=== PATIENT | female | born 1945 | race Caucasian/White ===

== ENCOUNTER 2020-08-21 03:42 | Observation (INO) | payer MEDICARE, SELFPAY ==
[2020-08-21] VITALS (12 sets, daily range): BP systolic 156–221; BP diastolic 49–74; PULSE 68–84; RESP 16–24; TEMP 36.3–37.1; O2SAT 94–100; BMI 27.0
--- NOTE | ~2020-08-21 | US_ITS ---
EXAMINATION: US venous doppler [facility] DATE: 08/21/2020 07:27 INDICATION: Lower limb pain TECHNIQUE: Grayscale ultrasound images without and with compression and Doppler ultrasound images of the left lower extremity veins were obtained. COMPARISON: None. FINDINGS: The visualized portions of left common femoral vein, profunda (deep) femoral vein, femoral vein, popl iteal vein, peroneal veins, posterior tibial veins, gastrocnemius vein and greater saphenous vein out flow are patent. IMPRESSION: 1. No deep venous thrombosis in the left lower limb. Reviewed, dictated and finalized at location A.
--- NOTE | 2020-08-21 03:53 | ECG_ITS ---
Measurements Intervals [place] Rate: 78 P: 35 NJ: 127 QRS: 55 QRSD: 93 T: 14 QT: 375 QTc: 429 Interpretive Statements SINUS RHYTHM BORDERLINE ST ABNORMALITY- ANTERLATERAL LEADS BASELINE ARTIFACT- I, II, III, AVR, V4 BORDERLINE ECG Electronically Signed On 08-21-2020 7:09:21 CDT by Fly Arreola D.O.
--- NOTE | 2020-08-21 04:35 | ED.RECABL ---
HPI - Recheck/Abnormal Lab/Rx General Chief Complaint: Recheck/Abnormal Lab/Rx Stated Complaint: high bp Time Seen by Provider: 08/21/20 03:45 Source: patient Mode of arrival: ambulatory Limitations: no limitations History of Present Illness HPI narrative: This is a 74 year old female with history of hypertension and hyperlipidemia who presents for evaluation of hypertension. She reports she has been having intermittent spikes in her blood pressure over the past 2 weeks. When her blood pressure is greater than systolic 160 she will take hydralazine 25 mg to 50 mg. Otherwise she takes nifedpine 60 mg daily for her blood pressure. Tonight she states she was in the hot tub for 40 minutes. After getting out of hot tub, she started feeling her heart pounding so she checked her blood pressure. Her BP was systolic 200s so she took hydralazine 50 mg at 930 pm last night. She checked her blood pressure again at 3 am this morning it was still elevated. She denies chest pain, abdominal pain, dizziness, headache, nausea, vomiting or sob. She has chronic leg edema but she states it is not worse than normal. She is from out of town so she wanted to come get checked. Related Data Home Medications Medication Instructions Recorded Confirmed atorvastatin 10 mg PO DAILY 08/21/20 furosemide 20 mg PO BID 08/21/20 hydralazine 50 mg PO TID 08/21/20 nifedipine 60 mg PO DAILY 08/21/20 Allergies Allergy/AdvReac Type Severity Reaction Status Date / Time Penicillins Allergy Unknown Verified 08/21/20 03:52 Review of Systems Review of Systems: All systems reviewed & are unremarkable except as noted in HPI and below Constitutional: Constitutional: Denies chills and Denies fever(s) Eyes: Eyes: Denies change in vision Cardiovascular: Cardiovascular: Denies chest pain, Reports rapid heart rate and Denies radiating jaw, neck or arm pain Respiratory: Respiratory: Denies cough and Denies dyspnea Gastrointestinal: Gastrointestinal: Denies abdominal pain, Denies diarrhea, Denies nausea and Denies vomiting Musculoskeletal: Musculoskeletal: Denies back pain Neurologic: Denies dizziness and Denies headache(s) Psychiatric: Psychiatric: Reports anxiety PMF Past Medical History Medical History (Updated 08/21/20 @ 07:34 by Malika Glass MD) Chronic renal disease Hyperlipidemia Hypertension Surgical History Surgical History (Updated 08/21/20 @ 04:45 by Malika Glass MD) No pertinent past surgical history Social History Social History (Updated 08/21/20 @ 04:45 by Malika Glass MD) Smoking status: Never smoker Exam Const: General: no acute distress and alert Orientation/consciousness: patient oriented x3 Eyes: Pupils: Equal, round and reactive pupils present EOM: EOMs intact bilaterally Chest: Chest palpation & inspection: normal inspection of the chest Resp: Effort & Inspection: normal respiratory effort and no retractions Auscultation: clear to auscultation bilaterally Cardio: Rate: regular rate Rhythm: regular rhythm Heart sounds: no murmurs GI: GI Palp: Yes Soft to palpation, No Tenderness to palpation present (GI) and No Guarding due to palpation present (GI) Auscultation: normal bowel sounds Back/Spine/Pelvis: Back: no CVA tenderness Skin: General skin exam: normal color Rashes: no rashes Neuro: General: patient oriented x3 and moves all extremities Extrem: General: edema bilateral (leg) Psych: Mental Status: mental status grossly normal Affect: Anxious affect present Course Reevaluation(s) Reevaluation #1: PAtient is anxious but she declines medication. She is now complaining of left thigh pain. leg with warm with no discoloration. Bilateral leg edema present. I am able to doppler and palpate DP, PT pulse. She will be admitted for treatment of hypertension and obtain of venous doppler. Date: 08/21/20 Time: 07:31 Consultations Consultation #1: I spoke with Dr. viera who
[2020-08-21] MEDS: hydrALAZINE HCL 50 MG TABLET PO (04:40)
[2020-08-21] MEDS: NIFEdipine 30 MG TAB.ER.24 60 MG PO (04:40)
[2020-08-21 04:48] LABS: Basophils Absolute Auto 0.1 K/mm3 (0.0-0.1); Eosinophils Absolute Auto 0.1 K/mm3 (0-0.3); Eosinophils Percent Auto 1.5 % (0-4.4); Hematocrit 37.3 % (37.0-47.0); Hemoglobin 11.7 g/dL (12.0-15.0); Immature Granulocyte Absolute 0.02 K/mm3 (0.00-0.031); Immature Granulocyte Percent A 0.3 % (0-0.5); Lymphocytes Absolute Auto 3.15 K/mm3 (0.9-3.2); Lymphocytes Percent Auto 39.7 % (18.3-44.2); Mean Corpuscular HGB Conc 31.4 g/dl (32-36); Mean Corpuscular Hemoglobin 27.5 pg (26-34); Mean Corpuscular Volume 87.8 fl (80-100); Mean Platelet Volume 11.9 fl (7.4-10.4); Monocytes Absolute Auto 0.7 K/mm3 (0.1-0.6); Monocytes Percent Auto 8.8 % (2.6-8.5); Neutrophils Absolute Auto 3.9 K/mm3 (1.3-6.7); Neutrophils Percent Auto 48.7 % (45.5-73.1); Platelet Count Result 221 k/mm3 (150-375); Red Blood Count 4.25 M/mm3 (4.2-5.4); Red Cell Distribution Width 16.2 % (11.5-14.5); White Blood Count 7.9 K/mm3 (4.5-10.0)
[2020-08-21 04:56] LABS: Alanine Aminotransferase 12 U/L (4-35); Albumin Level 4.1 g/dL (3.5-5.1); Alkaline Phosphatase 145 U/L (38-126); Anion Gap 6 mmol/L (8-16); Aspartate Amino Transferase 22 U/L (14-36); Bilirubin,Total 0.7 mg/dL (0.2-1.3); Blood Urea Nitrogen 38 mg/dL (7-17); Calcium 9.7 mg/dL (8.4-10.2); Carbon Dioxide 24 mmol/L (22-30); Chloride 112 mmol/L (98-107); Estimated CRCL calculation 28 ml/min; Estimated Glomerular Filt Rate 29; Glucose 116 mg/dL (65-105); Potassium 4.1 mmol/L (3.4-5.0); Sodium 142 mmol/L (137-145)
[2020-08-21 05:04] LABS: Prothrombin Time 13.4 Seconds (11.1-14.7)
[2020-08-21 05:04] LABS: Add Urine Microscopic? YES; Appearance Urine Clear (Clear); Bilirubin Urine Negative (Negative); Blood Urine Negative (Negative); Color Urine Colorless (Yellow); Glucose Urine UA Negative (Negative); Ketones Urine Negative (Negative); Leukocyte Esterase Ur Negative LEU/UL (Negative); Mucus Urine Rare /lpf; Nitrate Urine Negative (Negative); Protein Urine 2+ mg/dL (Negative); RBC Urine 0-2 /hpf (0-2); Specific Grav Ur 1.009 (1.001-1.035); Squamous Epithelial Cell Urine Rare /hpf (Few); Urobilinogen Urine Negative mg/dL (<2.0); WBC Urine 0-3 /hpf
[2020-08-21 05:05] LABS: Partial Thromboplastin Time 31.1 SECONDS (22.3-36.8)
[2020-08-21 05:07] LABS: Troponin I < 0.012 ng/mL (0.000-0.034)
[2020-08-21] MEDS: hydrALAZINE HCL 20 MG/ML VIAL 10 MG IV PUSH ×3 (05:45→14:07)
[2020-08-21] MEDS: MORPHINE SULFATE (*CRX) 4 MG/ML INJ IV PUSH (07:53)
[2020-08-21] MEDS: ASPIRIN 81 MG CHEWABLE TABLET 324 MG PO (07:56)
[2020-08-21] MEDS: ONDANSETRON INJ 4 MG/2 ML VIAL IV PUSH (08:07)
[2020-08-21 08:42] LABS: Glucose Point of Care 121 (65-105)
--- NOTE | 2020-08-21 09:26 | ADMGEN ---
This patient, Anali Santos, was admitted to Medical Room 247-. Patient/family oriented to hospital policies and general routines including ID bracelet, bed and alarms, visiting hours, pain management, procedures, bathroom and other care routines, personal items, smoking policy, room service/diet, and visiting hours. Information on how to activate the Rapid Response Team has been discussed. Patient/Family are encouraged to report perceived risks to care and to ask questions if they do not understand what they are told or what they should do.
[2020-08-21] MEDS: LIDOCAINE 5% PATCH 1 PATCH TRANSDERM (11:40)
[2020-08-21 15:11] LABS: Glucose Point of Care 123 (65-105)
[2020-08-21] MEDS: FUROSEMIDE 20 MG TABLET PO (16:45)
[2020-08-21] MEDS: hydrALAZINE HCL 25 MG TABLET PO (16:45)
--- NOTE | 2020-08-21 17:10 | PM.IMHP ---
H&P: HPI History of Present Illness Date/Time: 08/21/20 17:10 Chief Complaint: hIgh BP Narrative: Pt is from [place] came here for graduation. Noticed her BP was running high so came into hospital for evaluation. Pt was in hospital in February with [facility] in [place] but has been followed in the clinic for DM, HLD and HTN. States her diabetes is good but her HTN is variable. Noticed her BP was very high yesterday night and took her hydralazine. Also noticed her legs were swollen and complains of pain in her left groin area. No chest pain or sob Review of Systems Review of Systems: All systems reviewed & are unremarkable except as noted in HPI and below PMFSH Past Medical History Medical History (Updated 08/21/20 @ 17:16 by Kina Elaine MD) Chronic renal disease Hyperlipidemia Hypertension Surgical History Surgical History No pertinent past surgical history Family History Family History Father Heart failure Mother Dementia Social History Social History Smoking status: Never smoker Alcohol intake: never Substance use: never Spiritual care concerns: No Meds Home Medications and Allergies Home Medications Medication Instructions Recorded Confirmed Type amlodipine 10 mg PO DAILY 08/21/20 08/21/20 History atorvastatin 10 mg PO DAILY 08/21/20 08/21/20 History furosemide 20 mg PO BID 08/21/20 08/21/20 History hydralazine 50 mg PO DAILY PRN 08/21/20 08/21/20 History insulin glargine [Lantus Solostar 10 unit SUBCUT DAILY 08/21/20 08/21/20 History U-100 Insulin] insulin lispro [Humalog KwikPen 2 - 3 unit SUBCUT TID 08/21/20 08/21/20 History Insulin] nifedipine 60 mg PO DAILY 08/21/20 08/21/20 History Allergies Allergy/AdvReac Type Severity Reaction Status Date / Time Penicillins Allergy Intermediate Rash Verified 08/21/20 09:28 Vital Signs Vital Signs - 24 hr 08/21/20 03:48 08/21/20 05:32 08/21/20 06:40 Temperature Pulse Rate 82 68 75 Respiratory Rate 20 17 20 Blood Pressure 221/74 H 208/60 H 185/54 H Pulse Oximetry 100 100 100 08/21/20 08:15 08/21/20 08:36 08/21/20 09:05 Temperature 36.3 C L Pulse Rate 79 84 80 Respiratory Rate 18 24 H 18 Blood Pressure 177/55 H 161/51 H 179/50 H Pulse Oximetry 94 95 99 08/21/20 12:00 08/21/20 14:00 08/21/20 16:00 Temperature 36.5 C Pulse Rate 74 79 81 Respiratory Rate 16 Blood Pressure 184/72 H Pulse Oximetry 97 Exam Const: General: well developed Nutritional Appearance: well nourished HENMT: Head: normocephalic Eyes: General: appearance normal, both eyes and all related structures Pupils: Equal, round and reactive pupils present Neck: Neck: supple Chest: Chest palpation & inspection: normal inspection of the chest Resp: Effort & Inspection: normal respiratory effort Auscultation: clear to auscultation bilaterally Cardio: Jugular venous distension: no JVD Rhythm: regular rhythm Heart sounds: S1 normal heart sound present and S2 normal heart sound present GI: Inspection: normal to inspection GI Palp: No abdominal tenderness, Yes Soft to palpation and No Tenderness to palpation present (GI) Auscultation: normal bowel sounds : General: Yes no CVA tenderness Back/Spine/Pelvis: Back: no CVA tenderness Skin: General skin exam: normal color and dry skin Neuro: Cranial nerves: Yes CN's II-XII intact bilaterally and Yes Equal, round and reactive pupils present Cognition (Neuro): normal cognition Speech: normal speech Motor exam (neuro): 5/5 motor strength present throughout Extrem: General: normal to inspection Psych: Appearance: grossly normal Mental Status: mental status grossly normal H&P: Results Labs Labs: Short CBC 08/21/20 Range/Units 04:34 WBC 7.9 (4.5-10.0) K/mm3 Hgb 11.7 L (12.0-15.0) g/dL
[2020-08-21 18:25] LABS: Glucose Point of Care 159 (65-105)
[2020-08-21 21:39] LABS: Glucose Point of Care 266 (65-105)
[2020-08-22] VITALS (11 sets, daily range): BP systolic 148–164; BP diastolic 47–52; PULSE 63–78; RESP 18; TEMP 36.6–37; O2SAT 91–96
[2020-08-22 08:24] LABS: Glucose Point of Care 160 (65-105)
[2020-08-22] MEDS: INSULIN GLARGINE (*BKC) 100 UNITS/ML 10 UNITS SUB-Q (08:49)
[2020-08-22 08:50] LABS: Hemoglobin A1C 7.3 % (<5.7)
[2020-08-22 08:53] LABS: Cholesterol 130 mg/dL (0-200); HDL Direct 53 mg/dL; Triglycerides 98 mg/dL (<150)
[2020-08-22] MEDS: ATORVASTATIN 10 MG TABLET PO (08:53)
[2020-08-22] MEDS: FUROSEMIDE 20 MG TABLET PO ×2 (08:53→16:16)
[2020-08-22] MEDS: NIFEdipine 30 MG TAB.ER.24 60 MG PO (08:53)
[2020-08-22] MEDS: LIDOCAINE 5% PATCH 1 PATCH TRANSDERM (08:53)
[2020-08-22] MEDS: amLODIPine BESYLATE 5 MG TABLET 10 MG PO (08:53)
[2020-08-22] MEDS: hydrALAZINE HCL 25 MG TABLET PO (08:53)
[2020-08-22 09:03] LABS: LDL Cholesterol Direct 48 mg/dL
[2020-08-22 12:28] LABS: Glucose Point of Care 175 (65-105)
--- NOTE | 2020-08-22 13:55 | PM.IMPN ---
Progress Note: A&P Assessment and Plan (1) Hypertensive urgency: Code(s): I16.0 - Hypertensive urgency Status: Acute Assessment and Plan: Current blood pressure is 149/52 Current medications include lasix, hydralazine, nifedipine, and norvasc. Considering to DC the amlodipine and hydralazine and putting patient on losartan and atenolol. Patient uses the hydralazine PRN at home. Trend blood pressure and considering her renal function. (2) Diabetes: Code(s): E11.9 - Type 2 diabetes mellitus without complications Status: Acute Assessment and Plan: Accuchecks AC/HS Continue home insulin Diabetic heart healthy diet. (3) Hypertension: Code(s): I10 - Essential (primary) hypertension Status: Acute Assessment and Plan: Current blood pressure is 149/52 Current medications include lasix, hydralazine, nifedipine, and norvasc. Considering to DC the amlodipine and hydralazine and putting patient on losartan and atenolol. Patient uses the hydralazine PRN at home. Trend blood pressure and considering her renal function. (4) Hyperlipidemia: Code(s): E78.5 - Hyperlipidemia, unspecified Status: Acute Assessment and Plan: Lipid panel looks controlled Continue home atorvastatin 10mg PO (5) Chronic renal disease: Code(s): N18.9 - Chronic kidney disease, unspecified Status: Acute Assessment and Plan: Creatinine today is 1.7. Patient stated this is her baseline Continue to trend. Subjective Date/time seen: 08/22/20 13:55 Patient is a 74-year-old female with a past medical history of COVID 19, renal failure, congestive heart failure who came to the ED for complaints of elevated blood pressure. Patient states she sees cardiology and nephrology in [place] where she lives. She explained the Cardiology has changed her meds along with Nephrology and she is confused about what medication she should be taking. Blood pressure was 221/74 currently her blood pressure is 149/52. Patient denies chest pain shortness of breath, nausea, vomiting, diarrhea, constipation, lightheadedness, dizziness, syncope, numbness and tingling, headache, weakness or fatigue. Patient does admit to bilateral lower leg edema. Which she says is not new that her legs are always swollen. Patient has voiced that she just wants her medications to be right. At this time I am unclear what medications patient should be taking what medications have been changed. I a.m. getting these medications verified by the pharmacy to see which ones were filled I will make adjustments as needed and try to stay within the realm of her routine. I explained the plan of care with the patient, patient verbalizes understanding all questions are answered. Review of Systems Review of Systems: All systems reviewed & are unremarkable except as noted in HPI and below Exam Const: General: cooperative, healthy appearing, comfortable, no acute distress, well developed, alert, awake, Physically active and anxious Nutritional Appearance: average body habitus and well nourished Orientation/consciousness: patient oriented x3 Limitations: no limitations HENMT: Head: normocephalic Ears: TM's normal bilaterally Eyes: General: appearance normal, both eyes and all related structures Pupils: Equal, round and reactive pupils present EOM: EOMs intact bilaterally Neck: Neck: normal visual inspection, full ROM, no lymphadenopathy, supple and no JVD Thyroid: thyroid normal Chest: Chest palpation & inspection: normal inspection of the chest Resp: Effort & Inspection: normal respiratory effort and able to speak in complete sentences Auscultation: clear to auscultation bilaterally Cardio: Jugular venous distension: no JVD Rate: regular rate Rhythm: regular rhythm Heart sounds: S1 normal heart sound present and S2 normal heart sound present Peripheral pulses: Periph
[2020-08-22] MEDS: atenoloL 25 MG TABLET PO (16:16)
[2020-08-22 18:39] LABS: Glucose Point of Care 229 (65-105)
[2020-08-22] MEDS: INSULIN ASPART (*BKC) 100 UNITS/ML SUB-Q (18:55)
[2020-08-22 21:28] LABS: Glucose Point of Care 211 (65-105)
[2020-08-23] VITALS (9 sets, daily range): BP systolic 152–160; BP diastolic 56–60; PULSE 56–68; RESP 18–20; TEMP 36.1–37.2; O2SAT 92–94
[2020-08-23 05:58] LABS: Anion Gap 3 mmol/L (8-16); Blood Urea Nitrogen 37 mg/dL (7-17); Carbon Dioxide 26 mmol/L (22-30); Chloride 109 mmol/L (98-107); Estimated CRCL calculation 24 ml/min; Estimated Glomerular Filt Rate 24; Glucose 148 mg/dL (65-105); Sodium 138 mmol/L (137-145)
[2020-08-23] MEDS: ATORVASTATIN 10 MG TABLET PO (09:12)
[2020-08-23] MEDS: atenoloL 25 MG TABLET PO (09:12)
[2020-08-23] MEDS: LOSARTAN POTASSIUM 25 MG TABLET PO (09:13)
[2020-08-23] MEDS: FUROSEMIDE 20 MG TABLET PO (09:13)
[2020-08-23] MEDS: NIFEdipine 30 MG TAB.ER.24 60 MG PO (09:14)
[2020-08-23] MEDS: INSULIN GLARGINE (*BKC) 100 UNITS/ML 10 UNITS SUB-Q (09:18)
[2020-08-23 09:20] LABS: Glucose Point of Care 146 (65-105)
[2020-08-23] MEDS: LIDOCAINE 5% PATCH 1 PATCH TRANSDERM (10:46)
--- NOTE | 2020-08-23 13:18 | PM.DS ---
DS: Admitting Diagnosis Admitting Diagnosis Admitting Diagnosis: Hypertensive urgency DS: Discharge Diagnosis Discharge Diagnosis (1) Hypertensive urgency: Code(s): I16.0 - Hypertensive urgency Status: Acute Assessment and Plan: Current blood pressure is 158/60 Current medications include lasix, hydralazine PRN, nifedipine, atenolol, and losartan. Amlodipine has been DC'd and the hydralazine changed to PRN Trend blood pressure and considering renal function. (2) Diabetes: Code(s): E11.9 - Type 2 diabetes mellitus without complications Status: Acute Assessment and Plan: Accuchecks AC/HS Continue home insulin Diabetic heart healthy diet. (3) Hypertension: Code(s): I10 - Essential (primary) hypertension Status: Acute Assessment and Plan: See above (4) Hyperlipidemia: Code(s): E78.5 - Hyperlipidemia, unspecified Status: Acute Assessment and Plan: Lipid panel looks controlled Continue home atorvastatin 10mg PO (5) Chronic renal disease: Code(s): N18.9 - Chronic kidney disease, unspecified Status: Acute Assessment and Plan: Creatinine today is 2.0 which is elevated from yesterday. Patient stated baseline is around 1.7 Continue to trend. DS: Summary Hospital Course Reason for hospitalization: Hypertensive Urgency Hospital Course: Patient is a 74-year-old female with a past medical history of COVID 19, renal failure, congestive heart failure who came to the ED for complaints of elevated blood pressure. Patient states she sees cardiology and nephrology in [place] where she lives. She explained the Cardiology has changed her meds along with Nephrology and she is confused about what medication she should be taking. Blood pressure was 221/74 upon arrivial to the ED. Patient stated that before she came in she was try to control it by taking her PRN medications. However this did not work which brought her to the hospital. Currently her blood pressure is 158/60. Patient denies chest pain shortness of breath, nausea, vomiting, diarrhea, constipation, lightheadedness, dizziness, syncope, numbness and tingling, headache, weakness or fatigue. Since admission her blood pressure has been stable and has been systolically 140-160. Discussed with primary care physician's office in [place] about current regimen. Status at Discharge Functional status at discharge: independent ambulation Overall status at discharge: patient is back to baseline Time Spent with Patient Time attestation: Total time spent providing and/or coordinating discharge services:48 minutes Coordinating care with patient, primary care physician, Time spent: Greater than 30 minutes Exam Const: General: cooperative, healthy appearing, comfortable, no acute distress, well developed, alert, awake, Physically active and anxious Nutritional Appearance: average body habitus and well nourished Orientation/consciousness: patient oriented x3 Limitations: no limitations HENMT: Head: normocephalic Ears: TM's normal bilaterally Eyes: General: appearance normal, both eyes and all related structures Pupils: Equal, round and reactive pupils present EOM: EOMs intact bilaterally Neck: Neck: normal visual inspection, full ROM, no lymphadenopathy, supple and no JVD Thyroid: thyroid normal Chest: Chest palpation & inspection: normal inspection of the chest Resp: Effort & Inspection: normal respiratory effort and able to speak in complete sentences Auscultation: clear to auscultation bilaterally Cardio: Jugular venous distension: no JVD Rate: regular rate Rhythm: regular rhythm Heart sounds: S1 normal heart sound present and S2 normal heart sound present Peripheral pulses: Peripheral pulses 2+ throughout GI: Inspection: normal to inspection and non-distended Auscultation: normal bowel sounds : General: Yes no CVA tenderness Jun
[2020-08-23 13:34] LABS: Glucose Point of Care 228 (65-105)
[2020-08-23] MEDS: INSULIN ASPART (*BKC) 100 UNITS/ML SUB-Q (13:34)
[2020-08-23 16:36] LABS: Glucose Point of Care 150 (65-105)
== END 2020-08-23 18:25 | disposition home or self-care (01) ==
LOC: ANHED 07:34 → ANH2MED 07:59
PROVIDERS: Nurse Practitioner; Physician Assistant; Admitting Provider Family Medicine; Emergency Provider General Practice; Visit Provider Internal Medicine
DX: I16.0 Hypertensive urgency (principal); E78.5 Hyperlipidemia, unspecified; I13.0 Hypertensive heart and chronic kidney disease with heart failure and stage 1 through stage 4 chronic kidney disease, or unspecified chronic kidney disease; E11.22 Type 2 diabetes mellitus with diabetic chronic kidney disease; N18.9 Chronic kidney disease, unspecified; I50.9 Heart failure, unspecified; Z79.4 Long term (current) use of insulin; Z86.16 Personal history of COVID-19; M79.662 Pain in left lower leg
CPT/HCPCS: 36415; 80048; 80053; 80061; 81001; 82948; 83036; 83735; 84484; 85025; 85610; 85730; 93005; 93971; 96374; 96375; 96376; 99285; A9270; G0378; J0360; J1815; J2270; J2405